=== PATIENT | female | born 1975 | race Caucasian/White ===

== ENCOUNTER 2020-05-26 13:39 | Inpatient (IN) ==
[2020-05-26] MEDS ORDERED: NS 0.9% IV ONE (14:15)
[2020-05-26 14:56] LABS: Hematocrit 52 % (35-47); Hemoglobin 16.6 g/dL (12.0-16.0); Mean Corpuscular HGB Conc 32 g/dL (31-36); Mean Corpuscular Hemoglobin 25 pg (27-31); Mean Corpuscular Volume 79 fL (80-97); Mean Platelet Volume 10.5 fL (7.4-10.4); Platelet Count 319 10^3/uL (150-450); Red Blood Count 6.59 10^6 /uL (3.70-4.87); Red Cell Distribution Width 18 % (10-15); White Blood Count 23.3 10^3/uL (3.5-10.8)
[2020-05-26] MEDS ORDERED: Piperacillin/Tazobac ADVAN 3.375 GM in NS 0.9% 100 ml BAG 100 ML IVPB ONE (15:00)
[2020-05-26 15:21] LABS: HCG Pregnancy 8.45 mIU/mL
[2020-05-26 15:26] LABS: Albumin 3.2 g/dL (3.2-5.2); Albumin/Globulin Ratio 0.9 (1-3); BUN/Creatinine Ratio 34.1 (8-20); Calcium 8.6 mg/dL (8.6-10.3); EGFR African American 29.1 (>60); Globulin 3.5 g/dL (2-4); Total Protein 6.7 g/dL (6.4-8.9)
[2020-05-26 15:34] LABS: Total Bilirubin 13.6 mg/dL (0.2-1.0)
[2020-05-26 15:54] LABS: INR 7.63 (0.82-1.09)
[2020-05-26 16:02] LABS: ABS Lymphocytes 1.5 10^3/ul (1.0-4.8); ABS Monocytes 1.5 10^3/ul (0-0.8); ABS Neutrophils 20.3 10^3/ul (1.5-7.7); Eosinophil % 0.1 %; Lymphocyte % 6.4 %; Nucleated Red Blood Cells % 0.1
[2020-05-26] MEDS ORDERED: Dextrose 50% Syringe 50 ml 25 GM/50 ML SYRINGE IV PUSH PRN ×2 (16:28→19:15)
[2020-05-26] MEDS ORDERED: NS 0.9% 1000 ml BAG 1,000 ML IV SCH ×2 (16:30→16:58)
[2020-05-26 16:44] LABS: Potassium 4.5 mmol/L (3.5-5.0)
[2020-05-26] MEDS ORDERED: Zosyn per Pharmacy NOTE FOLLOW UP SCH ×3 (17:00→20:00)
[2020-05-26] MEDS ORDERED: fentaNYL 100 mcg/2 ml 50 MCG/ML VIAL IV SLOW PU ONE (17:31)
[2020-05-26] MEDS ORDERED: Pantoprazole 80 mg in NS BAG 80 MG/250 ML BAG IV SCH (18:00)
[2020-05-26] MEDS ORDERED: Phytonadione Oral Solution 5 MG/25 ML UDC PO ONE (18:00)
[2020-05-26] MEDS ORDERED: Pantoprazole VIAL 40 MG VIAL IV SCH (18:00)
[2020-05-26] MEDS ORDERED: Oxymetazoline 0.05% NASAL SPR 15 ML BTL RIGHT NARE ONE (18:25)
[2020-05-26] MEDS ORDERED: fentaNYL 100 mcg/2 ml 50 MCG/ML VIAL IV SLOW PU PRN (19:16)
[2020-05-26] MEDS: ZOSYN 3.375 GM Q8H per EXTENDED INFUSION IV SCH (22:15)
[2020-05-26] MEDS: Ondansetron 4 mg VIAL 2 MG/ML 2 ml VIAL IV PRN (22:24)
[2020-05-26 22:46] LABS: Urine Appearance Cloudy; Urine Bilirubin 2+ (Negative); Urine Blood Negative (Negative); Urine Color Amber; Urine Glucose Negative (Negative); Urine Ketones Negative (Negative); Urine Nitrite Negative (Negative); Urine Protein 1+(30 mg/dL) (Negative); Urine Specific Gravity 1.021 (1.010-1.030); Urine Urobilinogen Positive (Negative)
[2020-05-26 22:50] LABS: Urine Bacteria Absent (Absent); Urine Red Blood Cell Trace(0-2/hpf) (Absent); Urine Squamous Epithelial Cell Present (Absent); Urine White Blood Cell 2+(11-20/hpf) (Absent)
[2020-05-26] MEDS ORDERED: NS 0.9% 1000 ml BAG 1,000 ML IV ONE (22:51)
[2020-05-27] MEDS ORDERED: NS 0.9% 500 ml BAG 500 ML IV ONE (04:47)
[2020-05-27] MEDS: ZOSYN 3.375 GM Q8H per EXTENDED INFUSION IV SCH ×3 (05:00→21:44)
[2020-05-27] MEDS: NS 0.9% 1000 ml BAG 1,000 ML IV SCH ×3 (05:27→21:41)
[2020-05-27] MEDS: Ondansetron 4 mg VIAL 2 MG/ML 2 ml VIAL IV PRN (06:04)
[2020-05-27 06:55] LABS: Hematocrit 44 % (35-47); Hemoglobin 14.2 g/dL (12.0-16.0); Mean Corpuscular HGB Conc 32 g/dL (31-36); Mean Corpuscular Hemoglobin 26 pg (27-31); Mean Corpuscular Volume 80 fL (80-97); Mean Platelet Volume 11.3 fL (7.4-10.4); Platelet Count 287 10^3/uL (150-450); Red Blood Count 5.52 10^6 /uL (3.70-4.87); Red Cell Distribution Width 17 % (10-15); White Blood Count 21.7 10^3/uL (3.5-10.8)
[2020-05-27 06:56] LABS: ABS Lymphocytes 1.1 10^3/ul (1.0-4.8); ABS Monocytes 1.7 10^3/ul (0-0.8); Nucleated Red Blood Cells % 0.1
[2020-05-27 06:59] LABS: ALT 302 U/L (7-52); Albumin 2.5 g/dL (3.2-5.2); BUN/Creatinine Ratio 34.3 (8-20); Blood Urea Nitrogen 73 mg/dL (6-24); CO2 Carbon Dioxide 17 mmol/L (22-32); Chloride 100 mmol/L (101-111); EGFR African American 30.2 (>60); EGFR Non-African American 24.9 (>60); Globulin 2.6 g/dL (2-4); Glucose 202 mg/dL (70-100); Sodium 133 mmol/L (135-145); Total Protein 5.1 g/dL (6.4-8.9)
[2020-05-27 07:02] LABS: Anion Gap 16 mmol/L (2-11)
[2020-05-27 07:28] LABS: INR 7.18 (0.82-1.09)
[2020-05-27] MEDS ORDERED: NS 0.9% 1000 ml BAG 1,000 ML IV ONE (08:08)
[2020-05-27] MEDS: Pantoprazole VIAL 40 MG VIAL IV SCH (09:00)
[2020-05-27 11:52] LABS: Alkaline Phosphatase 2078 U/L (34-104)
[2020-05-27] MEDS ORDERED: Phytonadione Oral Solution 5 MG/25 ML UDC PO ONE ×2 (14:16→14:18)
[2020-05-27] MEDS ORDERED: Lorazepam PYXIS KEY PRN (19:42)
[2020-05-27] MEDS ORDERED: LORazepam 2 mg VIAL 1 ml IV PUSH ONE (19:42)
[2020-05-27 22:52] LABS: Carcinoembryonic Antigen 1928.1 ng/mL (0.1-5.0)
[2020-05-28 02:41] LABS: Urine Creatinine Concentration 125.21 mg/dL
[2020-05-28 02:53] LABS: Creatine Kinase 293 U/L (10-223); Uric Acid 7.7 mg/dL (2.3-6.6)
[2020-05-28 02:59] LABS: INR 7.78 (0.82-1.09)
[2020-05-28] MEDS ORDERED: Phytonadione Oral Solution 5 MG/25 ML UDC PO ONE (03:01)
[2020-05-28 03:39] LABS: LDH 3142 U/L (140-271)
[2020-05-28 04:05] LABS: Carcinoembryonic Antigen 2203.5 ng/mL (0.1-5.0)
[2020-05-28] MEDS: ZOSYN 3.375 GM Q8H per EXTENDED INFUSION IV SCH ×3 (05:19→21:39)
[2020-05-28 06:07] LABS: INR 4.42 (0.82-1.09)
[2020-05-28] MEDS ORDERED: Phytonadione IV (Adult) 10 MG/ML 1 ML AMP IV ONE (09:14)
[2020-05-28 09:22] LABS: ABS Lymphocytes 0.7 10^3/ul (1.0-4.8); ABS Monocytes 1.5 10^3/ul (0-0.8); ABS Neutrophils 15.6 10^3/ul (1.5-7.7); Hematocrit 38 % (35-47); Hemoglobin 12.1 g/dL (12.0-16.0); Lymphocyte % 4.1 %; Mean Corpuscular HGB Conc 32 g/dL (31-36); Mean Corpuscular Hemoglobin 25 pg (27-31); Mean Corpuscular Volume 79 fL (80-97); Mean Platelet Volume 11.2 fL (7.4-10.4); Nucleated Red Blood Cells % 0.1; Platelet Count 192 10^3/uL (150-450); Red Blood Count 4.77 10^6 /uL (3.70-4.87); Red Cell Distribution Width 18 % (10-15); White Blood Count 17.9 10^3/uL (3.5-10.8)
[2020-05-28 09:45] LABS: ALT 237 U/L (7-52); Albumin 2.2 g/dL (3.2-5.2); Albumin/Globulin Ratio 0.8 (1-3); BUN/Creatinine Ratio 26.6 (8-20); Blood Urea Nitrogen 77 mg/dL (6-24); CO2 Carbon Dioxide 18 mmol/L (22-32); Calcium 6.8 mg/dL (8.6-10.3); Chloride 100 mmol/L (101-111); EGFR African American 21.1 (>60); EGFR Non-African American 17.5 (>60); Globulin 2.6 g/dL (2-4); Glucose 263 mg/dL (70-100); INR 3.71 (0.82-1.09); Sodium 130 mmol/L (135-145); Total Protein 4.8 g/dL (6.4-8.9)
[2020-05-28] MEDS: Pantoprazole VIAL 40 MG VIAL IV SCH (09:48)
[2020-05-28 09:56] LABS: Anion Gap 12 mmol/L (2-11)
[2020-05-28] MEDS ORDERED: Phytonadione 10 mg in 50 mL NS over 30 min IV ONE (10:00)
[2020-05-28 10:15] LABS: Alkaline Phosphatase 1634 U/L (34-104)
[2020-05-28] MEDS ORDERED: Furosemide 20 mg/2 ml IV VIAL IV SLOW PU ONE ×2 (10:31→19:10)
[2020-05-28 10:50] LABS: Potassium Redraw 4.6 mmol/L (3.5-5.0)
[2020-05-28] MEDS ORDERED: Phytonadione IV (Adult) 10 MG in NS 0.9% 50 ML 50 ML IV ONE (18:48)
[2020-05-28 20:08] LABS: INR 1.72 (0.82-1.09)
[2020-05-28 22:07] LABS: Hematocrit 36 % (35-47); Hemoglobin 12.2 g/dL (12.0-16.0); Mean Corpuscular HGB Conc 34 g/dL (31-36); Mean Corpuscular Hemoglobin 26 pg (27-31); Mean Corpuscular Volume 78 fL (80-97); Mean Platelet Volume 10.7 fL (7.4-10.4); Platelet Count 180 10^3/uL (150-450); Red Blood Count 4.65 10^6 /uL (3.70-4.87); Red Cell Distribution Width 18 % (10-15); White Blood Count 20.3 10^3/uL (3.5-10.8)
[2020-05-28] MEDS: Albumin Human 25% 25 GM/100 ML BTL IV SCH (22:25)
[2020-05-28 22:31] LABS: ALT 232 U/L (7-52); AST 706 U/L (13-39); Acetaminophen < 15 mcg/mL; Albumin 2.2 g/dL (3.2-5.2); Anion Gap 11 mmol/L (2-11); BUN/Creatinine Ratio 29.3 (8-20); Blood Urea Nitrogen 91 mg/dL (6-24); CO2 Carbon Dioxide 18 mmol/L (22-32); Calcium 6.6 mg/dL (8.6-10.3); Chloride 102 mmol/L (101-111); EGFR African American 19.5 (>60); EGFR Non-African American 16.1 (>60); Globulin 2.3 g/dL (2-4); Glucose 205 mg/dL (70-100); Phosphorus 3.6 mg/dL (2.5-5.0); Potassium 4.2 mmol/L (3.5-5.0); Sodium 131 mmol/L (135-145); Total Protein 4.5 g/dL (6.4-8.9); Uric Acid 8.6 mg/dL (2.3-6.6)
[2020-05-28 22:38] LABS: Indirect Bilirubin 4.8 mg/dL (0.3-1.0); LDH 2653 U/L (140-271)
[2020-05-28] MEDS ORDERED: Heparin DRIP 25,000 UNITS BAG 25,000 UNITS/500 ML BAG IV SCH (22:45)
[2020-05-28] MEDS ORDERED: Heparin 5000 UNITS/ML 1 mL VIAL IV SCH (23:00)
[2020-05-28 23:13] LABS: Alkaline Phosphatase 1647 U/L (34-104)
[2020-05-29 01:36] LABS: ABS Basophils 0.1 10^3/ul (0-0.2); ABS Lymphocytes 2.9 10^3/ul (1.0-4.8); ABS Monocytes 1.4 10^3/ul (0-0.8); ABS Neutrophils 15.9 10^3/ul (1.5-7.7); Eosinophil % 0.1 %; Lymphocyte % 14.3 %; Nucleated Red Blood Cells % 0.1
[2020-05-29] MEDS: ZOSYN 3.375 GM Q8H per EXTENDED INFUSION IV SCH ×2 (05:00→13:20)
[2020-05-29 05:18] LABS: ABS Lymphocytes 0.8 10^3/ul (1.0-4.8); ABS Monocytes 1.3 10^3/ul (0-0.8); ABS Neutrophils 15.6 10^3/ul (1.5-7.7); Eosinophil % 0.1 %; Hematocrit 37 % (35-47); Hemoglobin 11.8 g/dL (12.0-16.0); Lymphocyte % 4.3 %; Mean Corpuscular HGB Conc 32 g/dL (31-36); Mean Corpuscular Hemoglobin 26 pg (27-31); Mean Corpuscular Volume 79 fL (80-97); Mean Platelet Volume 10.6 fL (7.4-10.4); Nucleated Red Blood Cells % 0.2; Platelet Count 191 10^3/uL (150-450); Red Blood Count 4.62 10^6 /uL (3.70-4.87); Red Cell Distribution Width 18 % (10-15); White Blood Count 17.7 10^3/uL (3.5-10.8)
[2020-05-29 05:44] LABS: Albumin 2.4 g/dL (3.2-5.2); Calcium 6.9 mg/dL (8.6-10.3)
[2020-05-29 05:50] LABS: BUN/Creatinine Ratio 27.2 (8-20); EGFR African American 17.1 (>60); EGFR Non-African American 14.1 (>60); Globulin 2.3 g/dL (2-4); Phosphorus 4.4 mg/dL (2.5-5.0); Total Protein 4.7 g/dL (6.4-8.9)
[2020-05-29 05:59] LABS: INR 1.49 (0.82-1.09)
[2020-05-29 06:07] LABS: Activated Partial Thrombo Time >240.0 seconds (26.0-38.0)
[2020-05-29 06:16] LABS: Potassium 4.5 mmol/L (3.5-5.0)
[2020-05-29 06:17] LABS: Total Bilirubin 13.9 mg/dL (0.2-1.0)
[2020-05-29 07:26] LABS: Magnesium 2.8 mg/dL (1.9-2.7)
[2020-05-29] MEDS ORDERED: Norepinephrine 16MCG/ML IVPRE 4,000 MCG/250 ML BAG IV ONE (08:18)
[2020-05-29] MEDS: Pantoprazole VIAL 40 MG VIAL IV SCH (08:20)
[2020-05-29] MEDS ORDERED: Norepinephrine 16MCG/ML IVPRE 4,000 MCG/250 ML BAG IV SCH (09:00)
[2020-05-29] MEDS ORDERED: NS 0.9% 1000 ml BAG 1,000 ML IV SCH (10:30)
[2020-05-29] MEDS: Albumin Human 25% 25 GM/100 ML BTL IV SCH (10:44)
[2020-05-29] MEDS ORDERED: Hydrocortisone INJ 100 MG/2ML 2 ML VIAL IV SCH (11:00)
[2020-05-29] MEDS: Ondansetron 4 mg VIAL 2 MG/ML 2 ml VIAL IV PRN (12:58)
[2020-05-29 13:26] LABS: ABS Lymphocytes 0.6 10^3/ul (1.0-4.8); ABS Monocytes 1.4 10^3/ul (0-0.8); ABS Neutrophils 16.8 10^3/ul (1.5-7.7); ABS Nucleated RBC 0.1 10^3/ul; Hematocrit 39 % (35-47); Hemoglobin 12.6 g/dL (12.0-16.0); Lymphocyte % 3.2 %; Mean Corpuscular HGB Conc 33 g/dL (31-36); Mean Corpuscular Hemoglobin 26 pg (27-31); Mean Corpuscular Volume 80 fL (80-97); Nucleated Red Blood Cells % 0.6; Platelet Count 164 10^3/uL (150-450); Red Blood Count 4.84 10^6 /uL (3.70-4.87); Red Cell Distribution Width 18 % (10-15); White Blood Count 18.8 10^3/uL (3.5-10.8)
[2020-05-29 13:35] LABS: Activated Partial Thrombo Time 91.2 seconds (26.0-38.0); Fibrinogen 211.7 mg/dL (110.8-404.3); INR 1.3 (0.82-1.09)
[2020-05-29 13:41] LABS: ALT 201 U/L (7-52); Albumin/Globulin Ratio 1.4 (1-3); Alkaline Phosphatase 1467 U/L (34-104); BUN/Creatinine Ratio 25.9 (8-20); Blood Urea Nitrogen 97 mg/dL (6-24); Calcium 7.2 mg/dL (8.6-10.3); Chloride 100 mmol/L (101-111); EGFR African American 15.8 (>60); Globulin 2.2 g/dL (2-4); Glucose 184 mg/dL (70-100); Sodium 131 mmol/L (135-145); Total Protein 5.2 g/dL (6.4-8.9)
[2020-05-29 13:46] LABS: Anion Gap 17 mmol/L (2-11); CO2 Carbon Dioxide 14 mmol/L (22-32)
[2020-05-29] MEDS ORDERED: Morphine 2 MG/ML SYRINGE ONE (14:47)
[2020-05-29] MEDS ORDERED: Morphine 2 MG/ML SYRINGE IV ONE (14:49)
[2020-05-29] MEDS ORDERED: Lorazepam PYXIS KEY ONE ×2 (15:29→15:54)
[2020-05-29] MEDS ORDERED: LORazepam 2 mg VIAL 1 ml ONE ×2 (15:29→15:55)
[2020-05-29] MEDS ORDERED: Phenylephrine IV 10 MG/ML 1 ml VIAL ONE (16:18)
[2020-05-29] MEDS ORDERED: Succinylcholine 200 mg VIAL 20 mg/ml 10 ml VIAL (200 mg) ONE ×2 (16:20→16:30)
[2020-05-29] MEDS ORDERED: Etomidate 40 mg/20 ml (2 MG/ML) 20 ml VIAL (40 mg) ONE (16:30)
[2020-05-29 18:16] VITALS: BP 147/93
[2020-05-31 12:43] LABS: CA 19-9 5963 U/mL (<35)
[2020-05-31 16:23] LABS: Smooth Muscle Antibody Negative (Negative)
[2020-06-01 15:47] LABS: Mitochondria M2 Antibody <0.1 U
== END 2020-05-29 17:10 | disposition short-term general hospital (02) | DRG 281 ==
LOC: ED 13:39 → MEDTELE 16:29 → ED 18:30 → ICU 05-28 12:43
PROVIDERS: ADMIT Internal Medicine; ATTEND Internal Medicine